=== PATIENT | male | born 1995 | race Two or more races ===

== ENCOUNTER 2016-11-23 12:39 | Emergency (ER) | payer BC ==
[~2016-11-23] VITALS: Ht 175.3 cm; Wt 61.2 kg
[2016-11-23 13:43] LABS: URINE SOURCE CLEAN CATCH
[2016-11-23 14:00] LABS: URINE APPEARANCE CLEAR; URINE BILIRUBIN NEG (NEG); URINE BLOOD 1+ (NEG); URINE COLOR YELLOW; URINE GLUCOSE NEG (NEG); URINE KETONE NEG (NEG); URINE LEUKOCYTE ESTERASE 3+ (NEG); URINE NITRATE NEG (NEG); URINE PROTEIN NEG (NEG); URINE SPECIFIC GRAVITY 1.005 (1.003-1.035); URINE UROBILINOGEN 0.2 MG/DL (NEG)
[2016-11-23 14:03] LABS: CULTURE INDICATED? YES; URBCS1 AUWI 0-2 /[HPF] (0-2); URINE BACTERIA AUWI NEG (NEGATIVE); URINE SQUAMOUS EPITHELIAL CELL NONE SEEN /[HPF]; UWBCS1 AUWI 100-200 (0-5)
[2016-11-30 09:59] LABS: CHLAMYDIA TRACH Detected (Abnormal)
[2016-11-30 10:00] LABS: N GONOR Detected (Abnormal)
== END 2016-11-23 15:00 | disposition home or self-care (01) ==
LOC: CFTX 12:39 → CED 12:39 → CFTX 13:12 → CED 13:12 → CFTX 15:00
PROVIDERS: Physician Assistant
DX: N34.2 Other urethritis (principal)
CPT/HCPCS: 81003; 87086; 87491; 87591; 96372; 99283; J0696